=== PATIENT | male | born 1950 | race Caucasian/White ===

== ENCOUNTER → 2023-12-28 | Outpatient (CLI) | payer OTHER ==
[~2023-12-28] MED LIST: IOHEXOL 350 MG/ML 100ML INFUS..BTL IV ONE; IOHEXOL-350 50ML VIAL IV ONE
[2023-12-28] MEDS: HEPARIN PF LOCK 500 UNIT/5ML IV ONE (13:24)
== END | disposition home or self-care (01) ==
LOC: RAH 09:38
PROVIDERS: ATTEND Internal Medicine Cardiovascular Disease
DX: R06.02 Shortness of breath (principal); M47.815 Spondylosis without myelopathy or radiculopathy, thoracolumbar region
CPT/HCPCS: 75574; J1642; Q9967 ×2

== ENCOUNTER 2024-08-23 02:13 | Inpatient (IN) | payer OTHER ==
[~2024-08-23] VITALS: Ht 170.2 cm; Wt 70.9 kg
[2024-08-23] MEDS: ondanSETRON 4MG INJ IVP ONE (03:01)
[2024-08-23] MEDS: MAG/ALUM/SIMETH 30 ML UDCUP PO ONE (03:01)
[2024-08-23] MEDS: LIDOCAINE HCL 2% VISCOUS 15 ML UDCUP PO ONE (03:01)
[2024-08-23] MEDS: LACTATED RINGERS 1000ML 1,000 ML IV ONE (03:02)
[2024-08-23] MEDS: ketOROlac 15MG/ML VIAL (15MG/ML) IV ONE (03:02)
[2024-08-23] MEDS: DICYCLOMINE HCL 10 MG/5 ML ML PO ONE (03:03)
[2024-08-23 03:19] LABS: BASOPHILS # (AUTO) 0.04 K/uL (0.00-0.20); BASOPHILS % (AUTO) 0.2 % (0.0-5.0); EOSINOPHILS % (AUTO) 22.7 % (0.0-8.0); HEMATOCRIT 46.5 % (42-54); IMMATURE GRANULOCYTE ABSOLUTE 0.07 K/uL (0-1); LYMPHOCYTES # (AUTO) 0.6 K/uL (1.0-4.8); LYMPHOCYTES % (AUTO) 3.6 % (21.0-51.0); MEAN CORPUSCULAR HEMOGLOBIN 29.8 pg (27.0-33.0); MEAN CORPUSCULAR HGB CONC 35.3 g/dL (32.0-36.0); MEAN CORPUSCULAR VOLUME 84.4 fL (79-99); MONOCYTES # (AUTO) 0.9 K/uL (0.1-1.0); MONOCYTES % (AUTO) 5.2 % (3.0-13.0); NEUTROPHILS % (AUTO) 67.9 % (40.0-77.0); PLATELET COUNT (AUTO) 192 K/uL (130-400); RED BLOOD CELL COUNT(AUTO) 5.51 MIL/uL (4.50-6.20); RED CELL DISTRIBUTION WIDTH 12.1 % (11.0-15.5); WHITE BLOOD COUNT (AUTO) 17.7 K/uL (4.8-10.8)
[2024-08-23 04:27] LABS: CREATININE 0.9 mg/dL (0.5-1.3); POTASSIUM 4.6 mmol/L (3.5-5.1)
[2024-08-23 04:34] LABS: ALBUMIN 3.5 g/dL (3.5-5.0); TOTAL PROTEIN, SERUM 6.6 g/dL (6.0-8.3)
[2024-08-23 04:41] LABS: LYMPHOCYTES % (MANUAL) 1 % (22-44); MAN.DIFF COMMENT-IMPRESSION MANUAL DIFFERENTIAL; MONOCYTES % (MANUAL) 3 % (2-9); SEGMENTED NEUTROPHILS % 96 % (40-70); TOTAL CELLS COUNTED 100
[2024-08-23 04:42] LABS: PLATELET MORPHOLOGY COMMENT ADEQUATE
[2024-08-23 05:14] LABS: APPEARANCE,URINE CLOUDY (CLEAR); BILIRUBIN,URINE NEGATIVE (NEGATIVE); COLOR,URINE YELLOW (YELLOW); GLUCOSE, URINE (UA) NEGATIVE (NEGATIVE); KETONES,URINE 100 mg/dL (NEGATIVE); LEUKOCYTE ESTERASE ,URINE NEGATIVE Leu/uL (NEGATIVE); NITRATE,URINE 2+ (NEGATIVE); OCCULT BLOOD,URINE NEGATIVE (NEGATIVE); PH,URINE 8.5 (5.0-8.0); PROTEIN,URINE 70 mg/dL (NEGATIVE); UROBILINOGEN,URINE 0.2 mg/dL (0.2-1.0)
[2024-08-23 05:25] LABS: ADD UA MICROSCOPIC YES
[2024-08-23] MEDS ORDERED: IOHEXOL 350 MG/ML 100ML INFUS..BTL IV ONE (05:25)
[2024-08-23 05:30] LABS: BACTERIA,URINE RARE /HPF (None Seen); MUCUS,URINE RARE LPF (None Seen); NON-SQUAMOUS EPITHELIAL CELL 2 /HPF (0-2); TRIPLE PHOSPHATE CRYSTAL,UR RARE /LPF (None Seen)
[2024-08-23] MEDS ORDERED: acetaMINOPHEN 325 MG TAB PO PRN ×2 (08:00)
[2024-08-23] MEDS: ZOSYN 3.375GM +NS 50ML IV SCH (08:11)
[2024-08-23] MEDS: 0.9%NACL 1000ML 1,000 ML IV SCH (08:11)
[2024-08-23] MEDS: PANTOPrazole 40 MG/VIAL IVP SCH (08:11)
[2024-08-23] MEDS: ENOXAPARIN SODIUM 30 MG/0.3 ML SQ SCH (08:12)
[2024-08-23] MEDS: ondanSETRON 4MG INJ IVP PRN (11:46)
[2024-08-23] MEDS: LORazepam 2 MG/ML 1 ML VIAL IVP ONE (12:35)
[2024-08-23] MEDS: cefTRIAXone 1G VIAL IVPB SCH (14:37)
[2024-08-23] MEDS: metRONIDazole 500MG/100ML BAG 100 ML IVPB SCH (20:05)
[2024-08-23] MEDS: metRONIDazole 500MG/100ML BAG 100 ML ONE (20:06)
[2024-08-23] MEDS ORDERED: SIMV-46 PO (20:28)
[2024-08-23] MEDS ORDERED: METO25TA6 PO (20:28)
[2024-08-23 23:00] VITALS: BP 118/60; PULSE 81; RESP 18; TEMP 98.7
[2024-08-24] VITALS (7 sets, daily range): BP systolic 102–124; BP diastolic 49–57; PULSE 69–84; RESP 16–20; TEMP 97.9–98.6; O2SAT 99
[2024-08-24 05:24] LABS: CREATININE 1.1 mg/dL (0.5-1.3); POTASSIUM 3.6 mmol/L (3.5-5.1)
[2024-08-24 05:41] LABS: HEMATOCRIT 36.9 % (42-54); MEAN CORPUSCULAR HEMOGLOBIN 30.4 pg (27.0-33.0); MEAN CORPUSCULAR VOLUME 86.8 fL (79-99); RED BLOOD CELL COUNT(AUTO) 4.25 MIL/uL (4.50-6.20); RED CELL DISTRIBUTION WIDTH 12.6 % (11.0-15.5); WHITE BLOOD COUNT (AUTO) 8.2 K/uL (4.8-10.8)
[2024-08-24] MEDS: simVASTatin 20 MG TABLET PO SCH (21:00)
[2024-08-24] MEDS: metoPROLOL tartRATE 25 MG TAB PO SCH (21:00)
[2024-08-25 03:49] VITALS: BP 104/54; PULSE 69; RESP 16; TEMP 97.9
[2024-08-25 04:51] LABS: BASOPHILS # (AUTO) 0.02 K/uL (0.00-0.20); BASOPHILS % (AUTO) 0.3 % (0.0-5.0); EOSINOPHILS # (AUTO) 0.18 K/uL (0.00-0.70); EOSINOPHILS % (AUTO) 2.9 % (0.0-8.0); HEMATOCRIT 33.4 % (42-54); IMMATURE GRANULOCYTE ABSOLUTE 0.03 K/uL (0-1); LYMPHOCYTES # (AUTO) 0.7 K/uL (1.0-4.8); LYMPHOCYTES % (AUTO) 11.7 % (21.0-51.0); MEAN CORPUSCULAR HEMOGLOBIN 29.9 pg (27.0-33.0); MEAN CORPUSCULAR HGB CONC 33.8 g/dL (32.0-36.0); MEAN CORPUSCULAR VOLUME 88.4 fL (79-99); MONOCYTES # (AUTO) 0.9 K/uL (0.1-1.0); MONOCYTES % (AUTO) 14.3 % (3.0-13.0); NEUTROPHILS # (AUTO) 4.4 K/uL (1.8-7.7); NEUTROPHILS % (AUTO) 70.3 % (40.0-77.0); PLATELET COUNT (AUTO) 135 K/uL (130-400); RED BLOOD CELL COUNT(AUTO) 3.78 MIL/uL (4.50-6.20); RED CELL DISTRIBUTION WIDTH 12.5 % (11.0-15.5); WHITE BLOOD COUNT (AUTO) 6.3 K/uL (4.8-10.8)
[2024-08-25 05:35] LABS: CREATININE 0.9 mg/dL (0.5-1.3); POTASSIUM 3.5 mmol/L (3.5-5.1)
[2024-08-25 08:00] VITALS: BP 119/56; PULSE 68; RESP 17; TEMP 97.5; O2SAT 99
[2024-08-25 12:00] VITALS: BP 122/165; PULSE 74; RESP 17; TEMP 97.8
[2024-08-25] MEDS: MAGNESIUM CITRATE 296 ML SOLUTION PO ONE (13:54)
[2024-08-25 16:00] VITALS: BP 134/60; PULSE 66; RESP 18; TEMP 98.4
[2024-08-25 19:24] VITALS: BP 125/54; PULSE 68; RESP 20; TEMP 98.4
[2024-08-25 23:08] VITALS: BP 120/58; PULSE 65; RESP 20; TEMP 98
[2024-08-26 03:36] VITALS: BP 114/57; PULSE 69; RESP 20; TEMP 97.9
[2024-08-26 04:35] LABS: BASOPHILS # (AUTO) 0.01 K/uL (0.00-0.20); BASOPHILS % (AUTO) 0.1 % (0.0-5.0); EOSINOPHILS # (AUTO) 0.24 K/uL (0.00-0.70); EOSINOPHILS % (AUTO) 3.3 % (0.0-8.0); HEMATOCRIT 34.7 % (42-54); IMMATURE GRANULOCYTE ABSOLUTE 0.04 K/uL (0-1); LYMPHOCYTES # (AUTO) 0.8 K/uL (1.0-4.8); LYMPHOCYTES % (AUTO) 10.8 % (21.0-51.0); MEAN CORPUSCULAR HGB CONC 34.3 g/dL (32.0-36.0); MEAN CORPUSCULAR VOLUME 87.4 fL (79-99); MONOCYTES % (AUTO) 13.8 % (3.0-13.0); NEUTROPHILS # (AUTO) 5.2 K/uL (1.8-7.7); NEUTROPHILS % (AUTO) 71.5 % (40.0-77.0); PLATELET COUNT (AUTO) 148 K/uL (130-400); RED BLOOD CELL COUNT(AUTO) 3.97 MIL/uL (4.50-6.20); RED CELL DISTRIBUTION WIDTH 12.4 % (11.0-15.5); WHITE BLOOD COUNT (AUTO) 7.3 K/uL (4.8-10.8)
[2024-08-26 04:55] LABS: CREATININE 0.7 mg/dL (0.5-1.3); POTASSIUM 3.8 mmol/L (3.5-5.1)
[2024-08-26 08:08] VITALS: BP 114/50; PULSE 59; RESP 16; TEMP 98.3
[2024-08-26 11:40] VITALS: BP 108/53; PULSE 66; RESP 20; TEMP 97.9
[2024-08-26] MEDS ORDERED: CEFD300C3 PO (12:51)
== END 2024-08-26 14:30 | disposition home or self-care (01) | DRG 389 ==
LOC: EDH 02:13 → EDHIP 07:48 → 4BH 22:22
PROVIDERS: ADMIT Internal Medicine; ATTEND Internal Medicine
PROC: 0D9670Z Drainage of Stomach with Drainage Device, Via Natural or Artificial Opening (ICD-10-PCS; principal; 2024-08-25)
DX: K56.609 Unspecified intestinal obstruction, unspecified as to partial versus complete obstruction (principal); N39.0 Urinary tract infection, site not specified; K31.89 Other diseases of stomach and duodenum; K59.00 Constipation, unspecified; F41.9 Anxiety disorder, unspecified; B96.4 Proteus (mirabilis) (morganii) as the cause of diseases classified elsewhere; E78.00 Pure hypercholesterolemia, unspecified; Z85.51 Personal history of malignant neoplasm of bladder; Z90.79 Acquired absence of other genital organ(s); Z88.8 Allergy status to other drugs, medicaments and biological substances; Z92.21 Personal history of antineoplastic chemotherapy; Z93.3 Colostomy status; Z92.3 Personal history of irradiation; Z80.7 Family history of other malignant neoplasms of lymphoid, hematopoietic and related tissues; Z88.5 Allergy status to narcotic agent
CPT/HCPCS: 36415; 71045; 74018; 74177; 80048; 80053; 81001; 82150; 83690; 85025; 85027; 87086; 87186; 96372; 96375; 96376; G0378; J0696; J1650; J1885; J2060; J2405; J2470; J2543; J3230; J3490; J7030; J7120; Q9967